=== PATIENT | female | born 1950 | race Caucasian/White ===

== ENCOUNTER → 2017-09-29 | Outpatient (CLI) | payer MEDICARE, OTHER ==
[~2017-09-29] MED LIST: CALC600T72 PO; CET10 PO; CHOL200021 PO; DOC100 PO; ESC10 PO; ESCI20TA38 PO; EST3 PO; LACT1CAP50 PO; METR45GE7 TP; PSYL0.5240 PO; RABE20TA33 PO; RAN150 PO; SIMV-42 PO; TACR100O6 TP; [UNRECOGNIZED DRUG - CODE] PO
[2017-09-29 14:42] LABS: PLATELET COUNT, AUTOMATED 216 K/uL (150-450)
== END ==
LOC: LAB 14:13
PROVIDERS: ATTEND Internal Medicine Rheumatology
DX: L40.59 Other psoriatic arthropathy (principal); Z79.899 Other long term (current) drug therapy
CPT/HCPCS: 36415; 82040; 82247; 82310; 82374; 82435; 82565; 82947; 84075; 84132; 84155; 84295; 84450; 84460; 84520; 85025; 85651

== ENCOUNTER → 2017-11-17 | Outpatient (CLI) | payer MEDICARE, OTHER | LOC: LAB 09:13 | PROVIDERS: ATTEND Internal Medicine Nephrology | DX: M85.80 Other specified disorders of bone density and structure, unspecified site (principal) | CPT/HCPCS: 36415; 82306; 82310; 82565; 83970; 84075 ==

== ENCOUNTER → 2017-12-17 | Outpatient (CLI) | payer MEDICARE, OTHER ==
[2017-12-17 13:54] LABS: PLATELET COUNT, AUTOMATED 217 K/uL (150-450)
== END ==
LOC: LAB 13:33
PROVIDERS: ATTEND Internal Medicine Rheumatology
DX: L40.59 Other psoriatic arthropathy (principal); Z79.899 Other long term (current) drug therapy
CPT/HCPCS: 36415; 82040; 82247; 82310; 82374; 82435; 82565; 82947; 84075; 84132; 84155; 84295; 84450; 84460; 84520; 85025; 85651

== ENCOUNTER → 2018-02-22 | Outpatient (CLI) | payer MEDICARE, OTHER ==
[2018-02-22 13:29] LABS: PLATELET COUNT, AUTOMATED 251 K/uL (150-450)
== END ==
LOC: LAB 13:11
PROVIDERS: ATTEND Internal Medicine
DX: Z00.00 Encounter for general adult medical examination without abnormal findings (principal); E78.00 Pure hypercholesterolemia, unspecified; N28.9 Disorder of kidney and ureter, unspecified
CPT/HCPCS: 36415; 82040; 82247; 82310; 82374; 82435; 82465; 82565; 82947; 83718; 84075; 84132; 84155; 84295; 84439; 84443; 84450; 84460; 84478; 84520; 85025

== ENCOUNTER → 2018-03-18 | Outpatient (CLI) | payer MEDICARE, OTHER ==
[2018-03-18 16:49] LABS: PLATELET COUNT, AUTOMATED 221 K/uL (150-450)
== END ==
LOC: LAB 16:32
PROVIDERS: ATTEND Internal Medicine Rheumatology
DX: L40.59 Other psoriatic arthropathy (principal); Z79.899 Other long term (current) drug therapy
CPT/HCPCS: 36415; 82040; 82247; 82310; 82374; 82435; 82565; 82947; 84075; 84132; 84155; 84295; 84450; 84460; 84520; 85025; 85651

== ENCOUNTER → 2018-03-25 | Outpatient (CLI) | payer MEDICARE, OTHER ==
--- NOTE | 2018-03-26 08:29 | RADIOLOGY IMAGING REPORT ---
[place] [facility] [place] NAME: MARLEN VERGARA : [id number] MR: [id number] V: [id number] EXAM DATE: [id number] ORDERING PHYSICIAN: GUY CAPPS TECHNOLOGIST: Shahrzad Lombardo PROCEDURE:BILATERAL DIGITAL SCREENING MAMMOGRAM WITH CAD ASSISTED INTERPRETATION & 3D TOMOSYNTHESIS COMPARISON:Prior mammograms 03/19/17, 02/05/16, 01/29/15, 01/05/14, 01/04/13, 01/02/12. INDICATIONS:screening FINDINGS: Again noted are bilateral breast implants with no evidence of implant rupture or leakage. Dense heterogeneous fibroglandular tissue is seen anterior to the implants. The parenchymal pattern has remained stable allowing for difference in mammographic technique & patient positioning. There is a biopsy clip in the upper outer quadrant of the Right breast. There is no evidence of malignant appearing mass, malignant appearing calcifications or other secondary sign of malignancy in either breast. DIAGNOSTIC CATEGORY 2--BENIGN FINDING. RECOMMENDATIONS: ROUTINE MAMMOGRAM AND CLINICAL EVALUATION. IMPRESSION: BIRADS 2: Benign finding. No significant abnormality is seen. Dictated by: Lena Neal M.D. on 03/25/2018 at 15:55 Transcribed by: VETO on 03/26/2018 at 8:03 Approved by: Lena Neal M.D. on 03/26/2018 at 8:28 [facility]
== END ==
LOC: MAMO 01:27
PROVIDERS: ATTEND Obstetrics & Gynecology
DX: Z12.31 Encounter for screening mammogram for malignant neoplasm of breast (principal)
CPT/HCPCS: 77063; 77067

== ENCOUNTER → 2018-04-21 | Outpatient (CLI) | payer MEDICARE, OTHER ==
[2018-04-21 15:01] LABS: PLATELET COUNT, AUTOMATED 248 K/uL (150-450)
== END ==
LOC: LAB 14:35
PROVIDERS: ATTEND Internal Medicine Rheumatology
DX: L40.59 Other psoriatic arthropathy (principal); Z79.899 Other long term (current) drug therapy
CPT/HCPCS: 36415; 82040; 82247; 82310; 82374; 82435; 82565; 82947; 84075; 84132; 84155; 84295; 84450; 84460; 84520; 85025; 85651

== ENCOUNTER → 2018-07-15 | Outpatient (CLI) | payer MEDICARE, OTHER ==
[2018-07-15 16:41] LABS: PLATELET COUNT, AUTOMATED 211 K/uL (150-450)
== END ==
LOC: LAB 15:08
PROVIDERS: ATTEND Internal Medicine Rheumatology
DX: L40.59 Other psoriatic arthropathy (principal); Z79.899 Other long term (current) drug therapy
CPT/HCPCS: 36415; 82040; 82247; 82310; 82374; 82435; 82565; 82947; 84075; 84132; 84155; 84295; 84450; 84460; 84520; 85025; 85651

== ENCOUNTER → 2018-07-15 | Outpatient (CLI) | payer MEDICARE, OTHER | LOC: LAB 15:07 | PROVIDERS: ATTEND Internal Medicine Gastroenterology | DX: K58.2 Mixed irritable bowel syndrome (principal); K21.9 Gastro-esophageal reflux disease without esophagitis | CPT/HCPCS: 36415; 82941; 86140 ==

== ENCOUNTER → 2018-07-15 | Outpatient (CLI) | payer MEDICARE, OTHER | LOC: LAB 15:11 | PROVIDERS: ATTEND Internal Medicine | DX: R39.9 Unspecified symptoms and signs involving the genitourinary system (principal) | CPT/HCPCS: 81001 ==

== ENCOUNTER → 2018-08-26 | Outpatient (CLI) | payer MEDICARE, OTHER ==
[2018-08-26 16:19] LABS: PLATELET COUNT, AUTOMATED 210 K/uL (150-450)
== END ==
LOC: LAB 15:57
PROVIDERS: ATTEND Internal Medicine Rheumatology
DX: L40.59 Other psoriatic arthropathy (principal); Z79.899 Other long term (current) drug therapy
CPT/HCPCS: 36415; 82040; 82247; 82310; 82374; 82435; 82565; 82947; 84075; 84132; 84155; 84295; 84450; 84460; 84520; 85025; 85651

== ENCOUNTER 2018-09-08 23:37 | Emergency (ER) | payer MEDICARE, OTHER ==
[2018-09-08] MEDS ORDERED: SULF500T48 PO (23:52)
[2018-09-09] MEDS ORDERED: LIDOCAINE 2% VISC SLN 15ML UDC PO ONE (00:10)
[2018-09-09] MEDS ORDERED: MAG HYD/AL HYD/SIMETH 30ML UDC PO ONE (00:10)
--- NOTE | 2018-09-09 00:10 | ER Report ---
History and Physical Time Seen By MD: 23:45 Hx. of Stated Complaint: chest pain since last thursday. was started on a new med. thinks it is related. HPI/ROS CHIEF COMPLAINT: Chest pain HISTORY OF PRESENT ILLNESS: 68-year-old female began taking sulfasalazine for psoriatic arthritis approximately 5 days ago. She states that for the past 4 days she has had constant central pressure-like chest pain that radiates directly to her back. She states the pain has been present constantly, though worse with exerting herself and talking. She is not short of breath, the pain does not radiate, the pain is moderately severe, she does not have diaphoresis. She does have some nausea. She does not have abdominal pain, constipation, diarrhea. She does not have new leg swelling or pain. She has no history of cardiac disease. She had a stress test 2 years ago which was negative. She has never had cardiac catheterization. She has never had a DVT or PE. There is not a history of cardiac disease in the family. She does not use tobacco. She is treated for hypercholesterolemia. REVIEW OF SYSTEMS: Constitutional: No fever, no chills. Eyes: no blurred vision ENT: No sore throat. No dysphagia/odynophagia Cardiovascular: above Respiratory: No cough, no shortness of breath. Gastrointestinal: No abdominal pain, no vomiting. Genitourinary: no dysuria Musculoskeletal: pain radiates to back as above Skin: No rashes. Neurological: No headache. Remainder of the 14 system rev: Yes Allergies: Coded Allergies: cefazolin sodium (Verified Allergy, Mild, CHILLS, 07/15/12) Cephalexin Monohydrate (Unverified Allergy, Unknown, 01/05/13) ADDED PER PATIENT REQUEST Penicillins (Verified Allergy, Unknown, 07/15/12) cefazolin (Verified Allergy, Unknown, 07/15/12) Home Meds Reported Medications Sulfasalazine (SULFASALAZINE) 500 Mg Tablet, 500 MG PO QDAY 09/08/18 Lactobacillus Acidophilus (Acidophilus) 1 Each Capsule, 1 CAP PO DAILY 07/15/12 Cholecalciferol (Vitamin D) 2,000 Unit Capsule, 1 CAP PO DAILY 07/15/12 Magnesium Oxide (Magnesium) 500 Mg Capsule, 1 TAB PO DAILY 07/15/12 Calcium Carbonate (Calcium) 600 Mg Tablet, 1600 MG PO DAILY 07/15/12 Docusate Sodium (Colace 100 Mg) 100 Mg Cap, 200 MG PO DAILY 07/15/12 Psyllium Husk (Metamucil) 0.52 G Capsule, 3 GM PO DAILY 07/15/12 Metronidazole (Metrogel) 45 Gm Gel, 45 GM TP 07/15/12 Tacrolimus (Protopic) 100 Gm Oint..gm., 100 GM TP 07/15/12 Estrogens Conjugated (Premarin) 0.3 Mg Tab, 0.15 MG PO QDAY 07/15/12 Escitalopram Oxalate (Lexapro) 20 Mg Tablet, 30 MG PO QDAY 07/15/12 Simvastatin (Zocor) 20 Mg Tablet, 20 MG PO QHS 07/15/12 Rabeprazole Sodium (Aciphex) 20 Mg Tablet.dr, 20 MG PO DAILY 07/15/12 Cetirizine Hcl (Zyrtec) 10 Mg Tab, 5 MG PO QDAY TAKES AT DINNER TIME 07/13/12 Escitalopram Oxalate (Lexapro) 10 Mg Tab, 30 MG PO QDAY 07/13/12 Ranitidine Hcl (Zantac) 150 Mg Tab, 150 MG PO QHS 07/13/12 Reviewed Nurses Notes: Yes Old Medical Records Reviewed: Yes Hx Smoking: Yes Exposure to Second Hand Smoke?: No Hx Substance Use Disorder: No Hx Alcohol Use: Yes Constitutional Vital Sign - Last 24 Hours 09/08/18 23:42 Temp 98.7 Pulse 63 Resp 16 B/P (MAP) 170/82 Pulse Ox 95 Physical Exam General Appearance: The patient is alert, has no immediate need for airway protection and no signs of toxicity. Eyes: Pupils equal and round no pallor or injection. ENT, Mouth: Mucous membranes are moist. Respiratory: There are no retractions, lungs are clear to auscultation. Cardiovascular: Regular rate and rhythm. no m/r/g. No carotid bruits Gastrointestinal: Abdomen is soft and non tender, no masses, bowel sounds normal. Neurological: alert, moves all ext Skin: Warm and dry, no rashes. Musculoskeletal: Extremities are nontender, nonswollen and have full range of motion. DIFFERENTIAL DIAGNOSIS: After history and physical exam differential diagnosis was considered for chest pain including but not limited to myocardial ischemia, pericarditis pulmonary embolus, chest wall pain, pleural inflammation and pulmonary infectious causes. Medical Decision Making Data Points Result Diagram: 09/09/18 0000 09/09/18 0000 Laboratory Hematology Test 09/09/18 00:00 Red Blood Count 4.79 M/uL (4.17-5.56) Mean Corpuscular Volume 88.4 fL (80.0-96.0) Mean Corpuscular Hemoglobin 29.7 pg (26.0-33.0) Mean Corpuscular Hemoglobin Concent 33.6 g/dL (32.0-36.0) Red Cell Distribution Width 13.4 % (11.5-14.5) Mean Platelet Volume 8.8 fL (7.2-11.1) Neutrophils (%) (Auto) 50.2 % (39.4-72.5) Lymphocytes (%) (Auto) 39.1 % (17.6-49.6) Monocytes (%) (Auto) 6.9 % (4.1-12.4) Eosinophils (%) (Auto) 2.4 % (0.4-6.7) Basophils (%) (Auto) 1.4 % (0.3-1.4) Nucleated RBC Relative Count (auto) 0.0 /100WBC Neutrophils # (Auto) 2.7 K/uL (2.0-7.4) Lymphocytes # (Auto) 2.1 K/uL (1.3-3.6) Monocytes # (Auto) 0.4 K/uL (0.3-1.0) Eosinophils # (Auto) 0.1 K/uL (0.0-0.5) Basophils # (Auto) 0.1 K/uL (0.0-0.1) Nucleated RBC Absolute Count (auto) 0.00 K/uL Sodium Level 141 mmol/L (137-145) Potassium Level 4.1 mmol/L (3.5-5.0) Chloride Level 106 mmol/L (98-107) Carbon Dioxide Level 25 mmol/L (22-31) Blood Urea Nitrogen 18 mg/dl (7-18) Creatinine 1.10 mg/dl (0.52-1.04) Glomerular Filtration Rate Calc 49.7 Random Glucose 108 mg/dl (75-110) Calcium Level 9.2 mg/dl (8.4-10.2) Total Bilirubin < 0.1 mg/dl (0.2-1.3) Aspartate Amino Transf (AST/SGOT) 32 U/L (0-35) Alanine Aminotransferase (ALT/SGPT) 28 U/L (0-56) Alkaline Phosphatase 91 U/L (0-126) Troponin I < 0.012 ng/ml Total Protein 6.8 g/dl (6.3-8.2) Albumin 4.2 g/dl (3.5-5.0) Lipase 184 U/L (23-300) Chemistry Test 09/09/18 00:00 White Blood Count 5.4 k/uL (4.5-11.0) Red Blood Count 4.79 M/uL (4.17-5.56) Hemoglobin 14.2 g/dL (12.0-16.0) Hematocrit 42.3 % (34.0-47.0) Mean Corpuscular Volume 88.4 fL (80.0-96.0) Mean Corpuscular Hemoglobin 29.7 pg (26.0-33.0) Mean Corpuscular Hemoglobin Concent 33.6 g/dL (32.0-36.0) Red Cell Distribution Width 13.4 % (11.5-14.5) Platelet Count 213 K/uL (150-450) Mean Platelet Volume 8.8 fL (7.2-11.1) Neutrophils (%) (Auto) 50.2 % (39.4-72.5) Lymphocytes (%) (Auto) 39.1 % (17.6-49.6) Monocytes (%) (Auto) 6.9 % (4.1-12.4) Eosinophils (%) (Auto) 2.4 % (0.4-6.7) Basophils (%) (Auto) 1.4 % (0.3-1.4) Nucleated RBC Relative Count (auto) 0.0 /100WBC Neutrophils # (Auto) 2.7 K/uL (2.0-7.4) Lymphocytes # (Auto) 2.1 K/uL (1.3-3.6) Monocytes # (Auto) 0.4 K/uL (0.3-1.0) Eosinophils # (Auto) 0.1 K/uL (0.0-0.5) Basophils # (Auto) 0.1 K/uL (0.0-0.1) Nucleated RBC Absolute Count (auto) 0.00 K/uL Glomerular Filtration Rate Calc 49.7 Calcium Level 9.2 mg/dl (8.4-10.2) Total Bilirubin < 0.1 mg/dl (0.2-1.3) Aspartate Amino Transf (AST/SGOT) 32 U/L (0-35) Alanine Aminotransferase (ALT/SGPT) 28 U/L (0-56) Alkaline Phosphatase 91 U/L (0-126) Troponin I < 0.012 ng/ml Total Protein 6.8 g/dl (6.3-8.2) Albumin 4.2 g/dl (3.5-5.0) Lipase 184 U/L (23-300) ED Course/Re-evaluation ED Course 68-year-old female presents with central chest pain that has been present since she started taking sulfasalazine. As pain radiates to back, I considered aortic dissection. Patient's chest x-ray is normal, and has normal pulses, no other signs or symptoms concerning for aortic dissection. I think this is low likelihood. As her pain has been present for more than 48 hours constantly, troponin will have excellent sensitivity. Troponin is negative, and EKG is without significant changes compared to prior. Patient's heart score is less than 4. It is reasonable for discharge with low likelihood of HI, however I did discuss with patient that this may still be anginal chest pain. She requires close primary follow-up and referral for stress testing as needed. It is unlikely that she has other emergent cardiopulmonary disease at this time, however she understands strict return precautions. 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 I do not see sign of heart attack right now, however, as we discussed your symptoms still may be due to the heart. Therefore, please return immediately if he have worsening pain, other concerning symptoms, or any other concerns. Problem Qualifiers Primary Impression: Chest pain Chest pain type: unspecified Qualified Codes: R07.9 - Chest pain, unspecified LEA JOHNSON MD Sep 09, 2018 00:10
[2018-09-09 00:27] LABS: PLATELET COUNT, AUTOMATED 213 K/uL (150-450)
[2018-09-09 00:30] VITALS: BP 155/86
--- NOTE | 2018-09-09 00:33 | EKG ---
FACILITY: [facility] PATIENT NAME: MARLEN VERGARA : [id number] MR: [id number] V: [id number] EXAM DATE: ORDERING PHYSICIAN: LEA JOHNSON TECHNOLOGIST: ALVERTO Test Reason : CP Blood Pressure : / mmHG Vent. Rate : 060 BPM Atrial Rate : 060 BPM P-R Int : 144 ms QRS Dur : 084 ms QT Int : 438 ms P-R-T Axes : 080 044 047 degrees QTc Int : 438 ms Normal sinus rhythm Anterolateral infarct , age undetermined Abnormal ECG When compared with ECG of 15-JUL-2012 04:27, Anterolateral infarct is now present T wave inversion now evident in Anterior leads Confirmed by Markell Lubin ([id number]) on 09/09/2018 6:33:55 AM Referred By: Confirmed By:Markell Chavis
--- NOTE | 2018-09-09 00:37 | RADIOLOGY IMAGING REPORT ---
FACILITY: [facility] PATIENT NAME: Lupe Naranjo : 1950 MR: [id number] V: [id number] EXAM DATE: ORDERING PHYSICIAN: LEA JOHNSON TECHNOLOGIST: [place] [facility] [place] N[place] : 1950 Visit/Account:[id number] Date of Sevice: 09/09/2018 CHEST: Indication: Persistent chest pain. Technique: Frontal and lateral views were obtained. Comparison: None available. Skeletal and soft tissue structures: Intact and unremarkable. Heart and mediastinum: Within normal limits. Lung davis: There is generalized hyperinflation, suggesting COPD. No focal parenchymal opacities are identified. Pleural spaces: Unremarkable. Impression: Generalized hyperinflation, suggesting COPD. No focal parenchymal or pleural abnormality. Report Dictated By: Ha Clark MD at 09/09/2018 12:31 AM Report E-Signed By: Ha Clark MD at 09/09/2018 12:33 AM WSN:[id number]
== END 2018-09-09 01:06 | disposition home or self-care (01) ==
LOC: ER 09-09 00:06
DX: R07.9 Chest pain, unspecified (principal)
CPT/HCPCS: 71046; 83690; 84484; 85025; 93005; 99284; A9270; 82040; 82247; 82310; 82374; 82435; 82565; 82947; 84075; 84132; 84155; 84295; 84450; 84460; 84520

== ENCOUNTER → 2018-10-12 | Outpatient (CLI) | payer MEDICARE, OTHER ==
[~2018-10-12] MED LIST changes: +SULF500T48 PO
[2018-10-12 16:24] LABS: PLATELET COUNT, AUTOMATED 212 K/uL (150-450)
== END ==
LOC: LAB 15:20
PROVIDERS: ATTEND Internal Medicine Rheumatology
DX: L40.59 Other psoriatic arthropathy (principal); Z79.899 Other long term (current) drug therapy
CPT/HCPCS: 36415; 82040; 82247; 82310; 82374; 82435; 82565; 82947; 84075; 84132; 84155; 84295; 84450; 84460; 84520; 85025; 85651

== ENCOUNTER → 2018-10-13 | Outpatient (REF) | payer MEDICARE, OTHER ==
[2018-10-13 15:38] LABS: PLATELET COUNT, AUTOMATED 201 K/uL (150-450)
== END ==
PROVIDERS: ATTEND Nurse Practitioner Family
DX: R07.9 Chest pain, unspecified (principal)
CPT/HCPCS: 82040; 82247; 82310; 82374; 82435; 82565; 82947; 84075; 84132; 84155; 84295; 84450; 84460; 84484; 84520; 85025; 85379

== ENCOUNTER → 2018-10-22 | Outpatient (CLI) | payer MEDICARE, OTHER | LOC: LAB 12:32 | PROVIDERS: ATTEND Internal Medicine Gastroenterology | DX: R89.9 Unspecified abnormal finding in specimens from other organs, systems and tissues (principal) | CPT/HCPCS: 36415; 82941 ==

== ENCOUNTER → 2018-12-01 | Outpatient (CLI) | payer MEDICARE, OTHER ==
--- NOTE | 2018-12-02 14:53 | RADIOLOGY IMAGING REPORT ---
FACILITY: [facility] PATIENT NAME: MARLEN VERGARA : [id number] MR: [id number] V: [id number] EXAM DATE: [id number] ORDERING PHYSICIAN: GUY CAPPS TECHNOLOGIST: Shahrzad Lombardo PROCEDURE:RIGHT DIGITAL MAMMOGRAM DIAGNOSTIC WITH CAD ASSISTED INTERPRETATION & 3D TOMOSYNTHESIS REASON FOR STUDY: Palpable lump Right axillary breast FAMILY HISTORY OF BREAST CANCER: None BREAST PROCEDURES/TREATMENTS: Benign surgical biopsy Right breast & bilateral breast augmentation in 2009. COMPARISON STUDIES: 03/25/18, 03/19/17, 02/05/16, 01/29/15, 01/05/14, 01/04/13 MAMMOGRAM VIEWS OBTAINED: 2D & 3D full field implant displacement views in the Right CC & MLO projections & 2D full field nonimplant displacement views in the Right CC & MLO projections. BREAST DENSITY: The Right breast is heterogeneously dense which can obscure small masses. MAMMOGRAM FINDINGS: The parenchymal pattern has remained stable allowing for difference in mammographic technique & patient positioning. There is a subpectoral Right breast implant in place without evidence of implant rupture or leakage. There is a biopsy clip in the upper outer quadrant of the Right breast middle depth. ULTRASOUND Right breast Ultrasound was performed to evaluate patient's palpable findings in the Right axilla. AREA SCANNED: ULTRASOUND FINDINGS: There are 2 fatty replaced lymph nodes in the Right axilla with a normal morphology. This may account for patient's palpable findings. DIAGNOSTIC CATEGORY 2--BENIGN FINDING. RECOMMENDATIONS: ROUTINE MAMMOGRAM AND CLINICAL EVALUATION. IMPRESSION: BIRADS 2: Benign finding. There are 2 fatty replaced lymph nodes in the Right axilla which may account for patient's palpable findings. Of note, the patient will be due for annual bilateral screening mammogram in March 2019. Dictated by: Lena Neal M.D. on 12/01/2018 at 16:04 Transcribed by: VICKI on 12/02/2018 at 10:53 Approved by: Lena Neal M.D. on 12/02/2018 at 14:50 [facility]
--- NOTE | 2018-12-02 14:53 | RADIOLOGY IMAGING REPORT ---
FACILITY: [facility] - [place] PATIENT NAME: MARLEN VERGARA : [id number] MR: [id number] V: [id number] EXAM DATE: [id number] ORDERING PHYSICIAN: GUY CAPPS TECHNOLOGIST: Jermaine Ojeda RDMS, SEAN PROCEDURE:RIGHT DIGITAL MAMMOGRAM DIAGNOSTIC WITH CAD ASSISTED INTERPRETATION & 3D TOMOSYNTHESIS REASON FOR STUDY: Palpable lump Right axillary breast FAMILY HISTORY OF BREAST CANCER: None BREAST PROCEDURES/TREATMENTS: Benign surgical biopsy Right breast & bilateral breast augmentation in 2009. COMPARISON STUDIES: 03/25/18, 03/19/17, 02/05/16, 01/29/15, 01/05/14, 01/04/13 MAMMOGRAM VIEWS OBTAINED: 2D & 3D full field implant displacement views in the Right CC & MLO projections & 2D full field nonimplant displacement views in the Right CC & MLO projections. BREAST DENSITY: The Right breast is heterogeneously dense which can obscure small masses. MAMMOGRAM FINDINGS: The parenchymal pattern has remained stable allowing for difference in mammographic technique & patient positioning. There is a subpectoral Right breast implant in place without evidence of implant rupture or leakage. There is a biopsy clip in the upper outer quadrant of the Right breast middle depth. ULTRASOUND Right breast Ultrasound was performed to evaluate patient's palpable findings in the Right axilla. AREA SCANNED: ULTRASOUND FINDINGS: There are 2 fatty replaced lymph nodes in the Right axilla with a normal morphology. This may account for patient's palpable findings. DIAGNOSTIC CATEGORY 2--BENIGN FINDING. RECOMMENDATIONS: ROUTINE MAMMOGRAM AND CLINICAL EVALUATION. IMPRESSION: BIRADS 2: Benign finding. There are 2 fatty replaced lymph nodes in the Right axilla which may account for patient's palpable findings. Of note, the patient will be due for annual bilateral screening mammogram in March 2019. Dictated by: Lena Neal M.D. on 12/01/2018 at 16:04 Transcribed by: VICKI on 12/02/2018 at 10:53 Approved by: Lena Neal M.D. on 12/02/2018 at 14:50 [facility]
== END ==
LOC: MAMO 01:37
PROVIDERS: ATTEND Obstetrics & Gynecology
DX: N63.11 Unspecified lump in the right breast, upper outer quadrant (principal)
CPT/HCPCS: 77061; 77065

== ENCOUNTER → 2019-01-27 | Outpatient (CLI) | payer MEDICARE, OTHER ==
[2019-01-27 15:41] LABS: PLATELET COUNT, AUTOMATED 199 K/uL (150-450)
== END ==
LOC: LAB 14:50
PROVIDERS: ATTEND Internal Medicine Rheumatology
DX: L40.59 Other psoriatic arthropathy (principal); Z79.899 Other long term (current) drug therapy
CPT/HCPCS: 36415; 82040; 82247; 82310; 82374; 82435; 82565; 82947; 84075; 84132; 84155; 84295; 84450; 84460; 84520; 85025; 85651